=== PATIENT | female | born 1940 | race Caucasian/White ===

== ENCOUNTER 2016-10-11 11:15 | Inpatient (IN) | payer OTHER ==
[~2016-10-11] VITALS: Ht 152.4 cm; Wt 77.7 kg
[~2016-10-11 11:15] MED LIST: ACETAMINOPHEN650 M6 PO; ADVIL,NUPRIN,M200 MG PO; AMLODIPINE BESYL5 MG PO; ATIVAN0.5 MG PO; BUTALB-APAP-CA1 EACH PO; CEFADROXIL500 MG PO; CEFTIN250 MG PO; CEFTRIAXONE2 G1 IM; CIPRO500 MG PO; COZAAR50 MG PO; Ceftin PO; Cipro PO; DECADRON1 MG PO; DEXAMETHASONE0.75 MG PO; DURICEF500 MG PO; ERGOCALCIF50000 UNIT PO; FIORICET,ESG1 TABLET PO; FLORASTOR250 MG PO; GEMFIBROZIL600 MG PO; HYDROCODON-ACE1 EACH; HYZAAR 100-11 TABLET PO; Hyzaar 100-12.5 PO; LOPID600 MG PO; LORAZEPAM0.5 MG PO; LOSARTAN POTAS100 MG PO; LOSARTAN-HCTZ1 EAC2 PO; MEDROL DOSEPAK4 MG PO; MIRAPEX0.25 MG PO; Mirapex PO; NORVASC5 MG PO; ONDANSETRON ODT4 MG PO; PRAMIPEXOLE D0.25 MG; PRAMIPEXOLE D0.25 MG PO; PRAVACHOL20 MG PO; PREDNISOLONE AC15 ML LEFT EYE; PRILOSEC OTC20 M1 PO; PRILOSEC OTC20 MG PO; ROCEPHIN1 GM/50 ML IV; SAMSCA15 MG PO; TRAMADOL HCL50 MG PO; URSODIOL300 MG PO; VITAMIN D1000 INTUN PO; VITAMIN D2000 UNI1 PO; Vicodin,Lortab 5/500 PO; ZANAFLEX4 MG PO
[2016-10-11 11:55] LABS: EOSINOPHIL (%) 2.8 % (0-5); EOSINOPHIL COUNT 0.2 K/uL (0-0.3); HEMATOCRIT 31.6 % (36.0-46.0); IMMATURE GRANULOCYTE (%) 1.5 % (0.0-0.7); IMMATURE GRANULOCYTE COUNT 0.1 K/uL; INSTRUMENT ABS NEUTROPHIL CT 4.1 K/uL; LYMPHOCYTE COUNT 1.3 K/uL (1.0-2.8); MCH 28.1 PG (29.0-34.0); MCHC 34.2 G/DL (30.0-36.0); MCV 82.1 FL (83-99); MEAN PLAT.VOLUME 9.3 uM^3 (9.5-12.4); MONOCYTE (%) 6.3 % (3-12); MONOCYTE COUNT 0.4 K/uL (0-0.8); NEUTROPHIL COUNT 4.1 K/uL (1.8-6.4); PLATELET COUNT 198 K/uL (156-360); RBC DIS.WIDTH-CV 14.2 % (11.8-14.6); RBC DIS.WIDTH-SD 41.4 % (39-53); RED BLOOD COUNT 3.85 M/uL (3.80-5.20); WHITE BLOOD COUNT 6.1 K/uL (4.1-10.2)
[2016-10-11 12:06] LABS: CHLORIDE 91 mEq/L (99-109); POTASSIUM 3.8 mEq/L (3.7-5.4)
[2016-10-11 12:09] LABS: GLUCOSE 95 mg/dL (70-99)
[2016-10-11 12:11] LABS: TOTAL BILIRUBIN 1.2 mg/dL (0.0-1.0)
[2016-10-11 12:12] LABS: ALKALINE PHOSPHATASE 68 IU/L (3-129); GFR ESTIMATE (CALCULATED) > 59 mL/min/
[2016-10-11 12:13] LABS: UREA NITROGEN (BUN) 11 mg/dL (9-23)
[2016-10-11 12:17] LABS: TROP-I INTERPRETATION NEGATIVE; TROPONIN-I < 0.01 ng/mL (0.0-0.30)
[2016-10-11 12:23] LABS: ANION GAP 1 MEQ/L (2-14); SODIUM 119 mEq/L (136-147)
[2016-10-11 13:24] LABS: ADD MIUA? YES; BILIRUBIN NEGATIVE; BLOOD NEGATIVE; COLOR YELLOW ((YELLOW)); GLUCOSE (STRIP) NEGATIVE; KETONES 5; LEUKOCYTES TRACE; NITRITE NEGATIVE; PROTEIN (STRIP) NEGATIVE; SPECIFIC GRAVITY 1.017 (1.000-1.030)
[2016-10-11 13:41] LABS: BACTERIA NONE SEEN /HPF; EPITHELIAL CELLS RARE /HPF; MUCUS TRACE /LPF; RED BLOOD CELLS 0-5 /HPF (0-5); UCUL ADDED? NO; WHITE BLOOD CELLS 0-5 /HPF (0-5)
[2016-10-11 16:10] LABS: CHLORIDE 93 mEq/L (99-109); SODIUM 122 mEq/L (136-147)
[2016-10-11 16:12] LABS: GLUCOSE 88 mg/dL (70-99)
[2016-10-11 16:14] LABS: ANION GAP 6 MEQ/L (2-14)
[2016-10-11 16:16] LABS: GFR ESTIMATE (CALCULATED) > 59 mL/min/
[2016-10-11 16:17] LABS: UREA NITROGEN (BUN) 10 mg/dL (9-23)
[2016-10-11 17:11] VITALS: BP 134/67
[2016-10-11 20:20] VITALS: BP 137/64
[2016-10-12] VITALS (7 sets, daily range): BP systolic 121–158; BP diastolic 60–72
[2016-10-12 07:08] LABS: HEMATOCRIT 30.5 % (36.0-46.0); MCH 29.2 PG (29.0-34.0); MCHC 33.4 G/DL (30.0-36.0); MEAN PLAT.VOLUME 9.5 uM^3 (9.5-12.4); PLATELET COUNT 175 K/uL (156-360); RBC DIS.WIDTH-CV 14.2 % (11.8-14.6); RBC DIS.WIDTH-SD 44.2 % (39-53); RED BLOOD COUNT 3.49 M/uL (3.80-5.20)
[2016-10-12 07:11] LABS: MCV 87.4 FL (83-99); WHITE BLOOD COUNT 4.2 K/uL (4.1-10.2)
[2016-10-12 07:30] LABS: ANION GAP 11 MEQ/L (2-14); CHLORIDE 92 MEQ/L (99-109); POTASSIUM 4.1 MEQ/L (3.7-5.4); SAMPLE HEMOLYSIS CHECK 0; SAMPLE ICTERIC CHECK 0; SAMPLE LIPEMIA CHECK 0; SODIUM 120 MEQ/L (136-147)
[2016-10-12 07:35] LABS: GFR ESTIMATE (CALCULATED) > 59 mL/min/; GLUCOSE 74 mg/dL (70-99); UREA NITROGEN (BUN) 8 mg/dL (9-23)
[2016-10-12] MEDS ORDERED: ONDANSETRON HCL4 MG PO (11:20)
[2016-10-12] MEDS ORDERED: CRESTOR10 MG PO (11:20)
[2016-10-12 13:14] LABS: CHLORIDE 95 mEq/L (99-109); SODIUM 123 mEq/L (136-147)
[2016-10-12 13:17] LABS: GLUCOSE 124 mg/dL (70-99)
[2016-10-12 13:19] LABS: GFR ESTIMATE (CALCULATED) > 59 mL/min/
[2016-10-12 13:20] LABS: UREA NITROGEN (BUN) 8 mg/dL (9-23)
[2016-10-12 16:51] LABS: SAMPLE HEMOLYSIS CHECK 0; SAMPLE ICTERIC CHECK 0; SAMPLE LIPEMIA CHECK 0
[2016-10-12 18:01] LABS: CHLORIDE 104 mEq/L (99-109); POTASSIUM 3.9 mEq/L (3.7-5.4)
[2016-10-12 18:03] LABS: GLUCOSE 131 mg/dL (70-99)
[2016-10-12 18:04] LABS: ANION GAP 8 MEQ/L (2-14)
[2016-10-12 18:07] LABS: GFR ESTIMATE (CALCULATED) > 59 mL/min/; UREA NITROGEN (BUN) 6 mg/dL (9-23)
[2016-10-12 18:08] LABS: SODIUM 133 mEq/L (136-147)
[2016-10-13] VITALS (7 sets, daily range): BP systolic 130–157; BP diastolic 60–77
[2016-10-13 01:14] LABS: CHLORIDE 106 mEq/L (99-109); POTASSIUM 3.6 mEq/L (3.7-5.4); SODIUM 135 mEq/L (136-147)
[2016-10-13 01:16] LABS: GLUCOSE 105 mg/dL (70-99)
[2016-10-13 01:17] LABS: ANION GAP 8 MEQ/L (2-14)
[2016-10-13 01:20] LABS: GFR ESTIMATE (CALCULATED) > 59 mL/min/
[2016-10-13 01:21] LABS: UREA NITROGEN (BUN) 6 mg/dL (9-23)
[2016-10-13 07:57] LABS: ANION GAP 10 MEQ/L (2-14); CHLORIDE 105 MEQ/L (99-109); GFR ESTIMATE (CALCULATED) > 59 mL/min/; GLUCOSE 121 mg/dL (70-99); POTASSIUM 3.7 MEQ/L (3.7-5.4); SAMPLE HEMOLYSIS CHECK 0; SAMPLE ICTERIC CHECK 0; SAMPLE LIPEMIA CHECK 0; SODIUM 136 MEQ/L (136-147); UREA NITROGEN (BUN) 6 mg/dL (9-23)
[2016-10-14 03:52] VITALS: BP 142/70
[2016-10-14 07:44] VITALS: BP 168/77
[2016-10-14] MEDS ORDERED: POLYETHYLENE GL17 GM PO (13:55)
[2016-10-14] MEDS ORDERED: AMLODIPINE BESYL5 MG PO (13:55)
[2016-10-14] MEDS ORDERED: HYDROCORTISONE20 MG PO (13:55)
[2016-10-14] MEDS ORDERED: HYDROCORTISONE5 MG PO (13:55)
[2016-10-14 14:00] VITALS: BP 139/65
== END 2016-10-14 16:40 | disposition home health service (06) | DRG 445 ==
LOC: EME 11:15 → 4EAST 13:47 → EDOF 13:47 → 4EAST 16:49 → 5EAST 10-13 21:05
PROVIDERS: Emergency Medicine; Hospitalist; Student in an Organized Health Care Education/Training Program
DX: K80.50 Calculus of bile duct without cholangitis or cholecystitis without obstruction (principal); E87.1 Hypo-osmolality and hyponatremia; E86.0 Dehydration; I10 Essential (primary) hypertension; E78.5 Hyperlipidemia, unspecified; G25.81 Restless legs syndrome; K21.9 Gastro-esophageal reflux disease without esophagitis; F41.9 Anxiety disorder, unspecified; Z68.33 Body mass index [BMI] 33.0-33.9, adult; Z88.2 Allergy status to sulfonamides
CPT/HCPCS: 71010; 80048; 80048 91; 80053; 81003; 84145 90; 84300; 84443; 84484; 85025; 85027; 93005; 99281; 99285; J1650; J1720; J2405; J7030

== ENCOUNTER 2016-12-25 16:39 | Inpatient (IN) | payer OTHER ==
[~2016-12-25] VITALS: Ht 154.9 cm; Wt 71.6 kg
[~2016-12-25 16:39] MED LIST changes: +CRESTOR10 MG PO; +HYDROCORTISONE20 MG PO; +HYDROCORTISONE5 MG PO; +ONDANSETRON HCL4 MG PO; +POLYETHYLENE GL17 GM PO
[2016-12-25 19:10] LABS: HEMATOCRIT 38.4 % (36.0-46.0); MCH 27.8 PG (29.0-34.0); MCHC 32.6 G/DL (30.0-36.0); MCV 85.5 FL (83-99); MEAN PLAT.VOLUME 8.7 uM^3 (9.5-12.4); PLATELET COUNT 293 K/uL (156-360); RBC DIS.WIDTH-CV 15.1 % (11.8-14.6); RBC DIS.WIDTH-SD 46.3 % (39-53); RED BLOOD COUNT 4.49 M/uL (3.80-5.20); WHITE BLOOD COUNT 7.6 K/uL (4.1-10.2)
[2016-12-25 19:16] LABS: INTER. NORMALIZED RATIO 1.2; PROTHROMBIN TIME 12.7 SEC (10.2-12.9)
[2016-12-25 19:19] LABS: CHLORIDE 101 mEq/L (99-109); POTASSIUM 3.8 mEq/L (3.7-5.4); SODIUM 141 mEq/L (136-147)
[2016-12-25 19:21] LABS: GLUCOSE 114 mg/dL (70-99)
[2016-12-25 19:22] LABS: ANION GAP 11 MEQ/L (2-14)
[2016-12-25 19:25] LABS: GFR ESTIMATE (CALCULATED) > 59 mL/min/
[2016-12-25 19:26] LABS: UREA NITROGEN (BUN) 13 mg/dL (9-23)
[2016-12-25 20:48] LABS: PTT 43.1 SEC (25-37)
[2016-12-25] MEDS ORDERED: CORTEF5 M1 PO ×2 (20:58→20:59)
[2016-12-25] MEDS ORDERED: ERGOCALCIF50000 UNIT PO (21:01)
[2016-12-25] MEDS ORDERED: COZAAR100 MG PO (21:04)
[2016-12-25] MEDS ORDERED: ATIVAN0.5 MG PO (21:04)
[2016-12-25 23:06] LABS: HEMATOCRIT 37.6 % (36.0-46.0); MCH 27.3 PG (29.0-34.0); MCHC 32.2 G/DL (30.0-36.0); MCV 84.9 FL (83-99); MEAN PLAT.VOLUME 8.8 uM^3 (9.5-12.4); PLATELET COUNT 311 K/uL (156-360); RBC DIS.WIDTH-CV 15.1 % (11.8-14.6); RBC DIS.WIDTH-SD 46.3 % (39-53); RED BLOOD COUNT 4.43 M/uL (3.80-5.20); WHITE BLOOD COUNT 7.9 K/uL (4.1-10.2)
[2016-12-25 23:12] LABS: INTER. NORMALIZED RATIO 1.3; PROTHROMBIN TIME 13.9 SEC (10.2-12.9)
[2016-12-26 00:18] VITALS: BP 136/86
[2016-12-26 03:59] VITALS: BP 128/65
[2016-12-26 04:02] LABS: INTER. NORMALIZED RATIO 1.2; PROTHROMBIN TIME 13.7 SEC (10.2-12.9)
[2016-12-26 04:21] LABS: PTT 217.8 SEC (25-37)
[2016-12-26 04:57] LABS: CHLORIDE 101 mEq/L (99-109); POTASSIUM 3.8 mEq/L (3.7-5.4); SODIUM 138 mEq/L (136-147)
[2016-12-26 05:00] LABS: ANION GAP 9 MEQ/L (2-14)
[2016-12-26 05:01] LABS: TOTAL BILIRUBIN 0.5 mg/dL (0.0-1.0)
[2016-12-26 05:03] LABS: GFR ESTIMATE (CALCULATED) > 59 mL/min/
[2016-12-26 05:09] LABS: GLUCOSE 89 mg/dL (70-99)
[2016-12-26 05:12] LABS: ALKALINE PHOSPHATASE 97 IU/L (3-129)
[2016-12-26 05:14] LABS: UREA NITROGEN (BUN) 13 mg/dL (9-23)
[2016-12-26 07:44] VITALS: BP 142/66
[2016-12-26 10:54] LABS: INTER. NORMALIZED RATIO 1.2; PROTHROMBIN TIME 13.3 SEC (10.2-12.9)
[2016-12-26 11:05] VITALS: BP 126/67
[2016-12-26 11:13] LABS: PTT 71.4 SEC (25-37)
[2016-12-26 16:24] VITALS: BP 111/62
[2016-12-26 20:15] VITALS: BP 132/71
[2016-12-27 00:43] VITALS: BP 124/64
[2016-12-27 07:45] VITALS: BP 140/75
[2016-12-27 08:07] LABS: INTER. NORMALIZED RATIO 2.1
[2016-12-27 08:23] LABS: PROTHROMBIN TIME 23.4 SEC (10.2-12.9)
[2016-12-27] MEDS ORDERED: ELIQUIS5 MG PO (10:24)
[2016-12-29 23:29] LABS: LUPA PHOSPHOLIPID NEUTRALIZ Negative (Negative)
== END 2016-12-27 14:30 | disposition home or self-care (01) | DRG 300 ==
LOC: EME 16:39 → RAD 16:39 → EDOF 21:47 → 2EAST 21:47 → ENRESERV 21:50 → 2EAST 23:13
PROVIDERS: Emergency Medicine; Internal Medicine
DX: I82.403 Acute embolism and thrombosis of unspecified deep veins of lower extremity, bilateral (principal); E22.2 Syndrome of inappropriate secretion of antidiuretic hormone; E78.5 Hyperlipidemia, unspecified; I10 Essential (primary) hypertension; K83.0 Cholangitis; M41.9 Scoliosis, unspecified; K21.9 Gastro-esophageal reflux disease without esophagitis; F41.9 Anxiety disorder, unspecified; Z90.49 Acquired absence of other specified parts of digestive tract; E78.00 Pure hypercholesterolemia, unspecified; M48.00 Spinal stenosis, site unspecified; G25.81 Restless legs syndrome; Z68.29 Body mass index [BMI] 29.0-29.9, adult; Z79.2 Long term (current) use of antibiotics; Z80.0 Family history of malignant neoplasm of digestive organs
CPT/HCPCS: 72110; 73502; 80048; 80053; 81240 90; 81241 90; 83090 90; 85027; 85240 90; 85300 90; 85303 90; 85305 90; 85306 90; 85610; 85613 90; 85670 90; 85730; 85730 90; 85730 GA; 86146 90; 86147 90; 93970; 99281; 99285; J2270

== ENCOUNTER 2017-06-24 00:25 | Emergency (ER) | payer OTHER ==
[~2017-06-24] VITALS: Ht 152.4 cm; Wt 81.5 kg
[~2017-06-24 00:25] MED LIST changes: +CORTEF5 M1 PO; +COZAAR100 MG PO; +ELIQUIS5 MG PO
[2017-06-24 02:30] LABS: HEMATOCRIT 29.6 % (36.0-46.0); HEMOGLOBIN 9.4 G/DL (11.9-15.5); MCH 24.2 PG (29.0-34.0); MCHC 31.8 G/DL (30.0-36.0); MCV 76.3 FL (83-99); PLATELET COUNT 259 K/uL (156-360); RBC DIS.WIDTH-CV 14.4 % (11.8-14.6); RBC DIS.WIDTH-SD 39.3 % (39-53); RED BLOOD COUNT 3.88 M/uL (3.80-5.20); WHITE BLOOD COUNT 8.9 K/uL (4.1-10.2)
[2017-06-24 02:38] LABS: PTT 40.6 SEC (25-37)
[2017-06-24 02:40] LABS: ALBUMIN 3.8 g/dL (3.2-4.8); CHLORIDE 102 mEq/L (99-109); SODIUM 140 mEq/L (136-147)
[2017-06-24 02:43] LABS: GLUCOSE 87 mg/dL (70-99); TOTAL PROTEIN 6.5 g/dL (6.4-8.3)
[2017-06-24 02:44] LABS: TOTAL BILIRUBIN 0.6 mg/dL (0.0-1.0)
[2017-06-24 02:46] LABS: ALKALINE PHOSPHATASE 95 IU/L (3-129); CREATININE 0.7 mg/dL (0.6-1.3); GFR ESTIMATE (CALCULATED) > 59 mL/min/
[2017-06-24 02:47] LABS: UREA NITROGEN (BUN) 8 mg/dL (9-23)
[2017-06-24 02:48] LABS: AST (GOT) 17 IU/L (2-34)
[2017-06-24 02:49] LABS: ALT (GPT) 7 IU/L (3-49)
[2017-06-24] MEDS ORDERED: FLEXERIL10 MG PO (04:09)
[2017-06-24 04:23] VITALS: BP 136/71
== END 2017-06-24 04:24 | disposition home or self-care (01) ==
LOC: EME → EDBD 00:25 → EME 00:25
PROVIDERS: Emergency Medicine Emergency Medical Services
DX: I82.441 Acute embolism and thrombosis of right tibial vein (principal); M54.5 Low back pain; I10 Essential (primary) hypertension; E78.5 Hyperlipidemia, unspecified; Z86.718 Personal history of other venous thrombosis and embolism; Z79.01 Long term (current) use of anticoagulants
CPT/HCPCS: 80053; 85027; 85610; 85730; 93005; 93971; 99281; 99285; J7040

== ENCOUNTER 2017-07-19 12:07 | Observation (INO) | payer OTHER ==
[~2017-07-19] VITALS: Ht 152.4 cm; Wt 79.6 kg
[~2017-07-19 12:07] MED LIST changes: +FLEXERIL10 MG PO
[2017-07-19 14:33] LABS: BASOPHIL (%) 0.4 % (0-1); CARBON DIOXIDE (BICARBONATE) 30.6 MEQ/L (20-31); EOSINOPHIL (%) 1.4 % (0-5); EOSINOPHIL COUNT 0.1 K/uL (0-0.3); HEMATOCRIT 31.5 % (36.0-46.0); HEMOGLOBIN 9.7 G/DL (11.9-15.5); IMMATURE GRANULOCYTE (%) 0.5 % (0.0-0.7); LYMPHOCYTE (%) 22.8 % (15-42); LYMPHOCYTE COUNT 2.1 K/uL (1.0-2.8); MCH 23.4 PG (29.0-34.0); MCHC 30.8 G/DL (30.0-36.0); MCV 76.1 FL (83-99); MONOCYTE (%) 7.7 % (3-12); MONOCYTE COUNT 0.7 K/uL (0-0.8); NEUTROPHIL (%) 67.2 % (45-76); NEUTROPHIL COUNT 6.2 K/uL (1.8-6.4); PLATELET COUNT 294 K/uL (156-360); RBC DIS.WIDTH-CV 15.7 % (11.8-14.6); RBC DIS.WIDTH-SD 43.5 % (39-53); RED BLOOD COUNT 4.14 M/uL (3.80-5.20); WHITE BLOOD COUNT 9.3 K/uL (4.1-10.2)
[2017-07-19 14:42] LABS: ALBUMIN 3.8 g/dL (3.2-4.8); CHLORIDE 102 mEq/L (99-109); POTASSIUM 3.1 mEq/L (3.7-5.4); SODIUM 138 mEq/L (136-147)
[2017-07-19 14:45] LABS: GLUCOSE 88 mg/dL (70-99); TOTAL PROTEIN 6.7 g/dL (6.4-8.3)
[2017-07-19 14:47] LABS: TOTAL BILIRUBIN 0.9 mg/dL (0.0-1.0)
[2017-07-19 14:48] LABS: ALKALINE PHOSPHATASE 89 IU/L (3-129); CREATININE 0.7 mg/dL (0.6-1.3); GFR ESTIMATE (CALCULATED) > 59 mL/min/
[2017-07-19 14:49] LABS: UREA NITROGEN (BUN) 11 mg/dL (9-23)
[2017-07-19 14:50] LABS: AST (GOT) 16 IU/L (2-34)
[2017-07-19 14:51] LABS: ALT (GPT) 8 IU/L (3-49)
[2017-07-19 14:52] LABS: LIPASE 9 U/L (1.0-51.0)
[2017-07-19 14:53] LABS: TROP-I INTERPRETATION NEGATIVE; TROPONIN-I < 0.01 ng/mL (0.0-0.30)
[2017-07-19 15:01] LABS: APPEARANCE CLEAR ((CLEAR)); BILIRUBIN NEGATIVE; BLOOD NEGATIVE; COLOR YELLOW ((YELLOW)); GLUCOSE (STRIP) NEGATIVE; KETONES NEGATIVE; LEUKOCYTES NEGATIVE; NITRITE NEGATIVE; PROTEIN (STRIP) NEGATIVE; UCUL ADDED? NO; UROBILINOGEN 0.2 MG/DL (0.2-1.0)
[2017-07-19 16:05] LABS: INTER. NORMALIZED RATIO 7.2
[2017-07-19] MEDS ORDERED: CORTEF5 M1 PO ×2 (16:49→16:50)
[2017-07-19] MEDS ORDERED: ATIVAN0.5 MG PO (16:53)
[2017-07-19] MEDS ORDERED: FLEXERIL10 MG PO (16:56)
[2017-07-19] MEDS ORDERED: COUMADIN5 MG PO (16:58)
[2017-07-19] MEDS ORDERED: AMLODIPINE BESYL5 MG PO (17:00)
[2017-07-19] MEDS ORDERED: OMEPRAZOLE20 M2 PO (17:01)
[2017-07-19 19:19] LABS: HEMATOCRIT 29.6 % (36.0-46.0); HEMOGLOBIN 9.1 G/DL (11.9-15.5); MCV 76.7 FL (83-99)
[2017-07-19 19:59] VITALS: BP 139/63
[2017-07-19 23:47] VITALS: BP 129/59
[2017-07-20 03:35] VITALS: BP 139/85
[2017-07-20 05:38] LABS: HEMOGLOBIN 9.3 G/DL (11.9-15.5); MCH 23.4 PG (29.0-34.0); MCV 77.9 FL (83-99); PLATELET COUNT 303 K/uL (156-360); RBC DIS.WIDTH-SD 45.1 % (39-53); RED BLOOD COUNT 3.98 M/uL (3.80-5.20); WHITE BLOOD COUNT 9.4 K/uL (4.1-10.2)
[2017-07-20 06:05] LABS: CREATININE 0.6 MG/DL (0.6-1.3); GFR ESTIMATE (CALCULATED) > 59 mL/min/; GLUCOSE 126 mg/dL (70-99); UREA NITROGEN (BUN) 13 mg/dL (9-23)
[2017-07-20 06:29] LABS: INTER. NORMALIZED RATIO 5.6; PTT 65.7 SEC (25-37)
[2017-07-20 07:32] LABS: CHLORIDE 103 MEQ/L (99-109); SODIUM 136 MEQ/L (136-147)
[2017-07-20 09:09] VITALS: BP 164/77
[2017-07-20 11:34] VITALS: BP 144/66
[2017-07-20 14:30] LABS: HEMATOCRIT 30.2 % (36.0-46.0); HEMOGLOBIN 9.1 G/DL (11.9-15.5); MCV 77.6 FL (83-99)
[2017-07-20 14:53] LABS: CHLORIDE 101 MEQ/L (99-109); CREATININE 0.6 MG/DL (0.6-1.3); GFR ESTIMATE (CALCULATED) > 59 mL/min/; GLUCOSE 111 mg/dL (70-99); POTASSIUM 4.1 MEQ/L (3.7-5.4); SODIUM 135 MEQ/L (136-147); UREA NITROGEN (BUN) 16 mg/dL (9-23)
[2017-07-20 16:18] VITALS: BP 159/75
[2017-07-20 20:15] VITALS: BP 143/63
[2017-07-21 00:42] VITALS: BP 166/74
[2017-07-21 04:23] VITALS: BP 173/79
[2017-07-21 08:34] VITALS: BP 156/70
[2017-07-21 09:06] LABS: INTER. NORMALIZED RATIO 1.7
[2017-07-21 12:08] VITALS: BP 171/79
[2017-07-21 15:38] LABS: HEMOGLOBIN 9.1 G/DL (11.9-15.5); MCH 23.2 PG (29.0-34.0); MCHC 30.3 G/DL (30.0-36.0); MCV 76.5 FL (83-99); PLATELET COUNT 326 K/uL (156-360); RBC DIS.WIDTH-CV 16.3 % (11.8-14.6); RBC DIS.WIDTH-SD 44.7 % (39-53); RED BLOOD COUNT 3.92 M/uL (3.80-5.20)
[2017-07-21 15:51] LABS: CHLORIDE 99 MEQ/L (99-109); MAGNESIUM 1.8 mg/dl (1.3-2.7); POTASSIUM 3.7 MEQ/L (3.7-5.4); SODIUM 131 MEQ/L (136-147)
[2017-07-21 15:57] LABS: CREATININE 0.5 MG/DL (0.6-1.3); GFR ESTIMATE (CALCULATED) > 59 mL/min/; GLUCOSE 97 mg/dL (70-99); UREA NITROGEN (BUN) 11 mg/dL (9-23)
[2017-07-21 16:00] LABS: TROP-I INTERPRETATION NEGATIVE; TROPONIN-I 0.01 ng/mL (0.0-0.30)
[2017-07-21 19:40] VITALS: BP 132/66
[2017-07-21 21:43] LABS: TROP-I INTERPRETATION NEGATIVE; TROPONIN-I < 0.01 ng/mL (0.0-0.30)
[2017-07-22 00:38] VITALS: BP 105/51
[2017-07-22 03:25] LABS: TROP-I INTERPRETATION NEGATIVE; TROPONIN-I < 0.01 ng/mL (0.0-0.30)
[2017-07-22 05:12] VITALS: BP 119/56
[2017-07-22 08:55] VITALS: BP 153/69
[2017-07-22 09:21] LABS: HEMATOCRIT 27.8 % (36.0-46.0); HEMOGLOBIN 8.4 G/DL (11.9-15.5); MCH 23.4 PG (29.0-34.0); MCHC 30.2 G/DL (30.0-36.0); MCV 77.4 FL (83-99); PLATELET COUNT 353 K/uL (156-360); RBC DIS.WIDTH-CV 16.3 % (11.8-14.6); RBC DIS.WIDTH-SD 45.1 % (39-53); RED BLOOD COUNT 3.59 M/uL (3.80-5.20); WHITE BLOOD COUNT 9.6 K/uL (4.1-10.2)
[2017-07-22 09:52] LABS: CHLORIDE 101 MEQ/L (99-109); CREATININE 0.6 MG/DL (0.6-1.3); GFR ESTIMATE (CALCULATED) > 59 mL/min/; GLUCOSE 103 mg/dL (70-99); POTASSIUM 4.3 MEQ/L (3.7-5.4); SODIUM 135 MEQ/L (136-147); UREA NITROGEN (BUN) 11 mg/dL (9-23)
[2017-07-22 11:19] VITALS: BP 161/68
[2017-07-22 14:34] LABS: HEMATOCRIT 26.8 % (36.0-46.0); HEMOGLOBIN 8.2 G/DL (11.9-15.5); MCV 76.1 FL (83-99)
[2017-07-22 16:27] VITALS: BP 121/72
[2017-07-22] MEDS ORDERED: TRAMADOL HCL50 MG PO (17:10)
[2017-07-22] MEDS ORDERED: CEFDINIR300 MG PO (17:10)
[2017-07-22] MEDS ORDERED: ATIVAN0.5 MG PO (17:10)
[2017-07-22 19:30] VITALS: BP 120/77
== END 2017-07-22 21:52 ==
LOC: EME 12:07 → 5WEST 18:33 → EDOF 18:33 → ENRESERV 18:36 → 5WEST 19:25
PROVIDERS: Emergency Medicine; Hospitalist; Nurse Practitioner Family
DX: G92 Toxic encephalopathy (principal); T45.515A Adverse effect of anticoagulants, initial encounter; E22.2 Syndrome of inappropriate secretion of antidiuretic hormone; E23.6 Other disorders of pituitary gland; R79.1 Abnormal coagulation profile; Z86.718 Personal history of other venous thrombosis and embolism; I10 Essential (primary) hypertension; M17.12 Unilateral primary osteoarthritis, left knee; M25.062 Hemarthrosis, left knee; E78.5 Hyperlipidemia, unspecified; G25.81 Restless legs syndrome; M79.605 Pain in left leg; K21.9 Gastro-esophageal reflux disease without esophagitis; R26.89 Other abnormalities of gait and mobility; Z90.49 Acquired absence of other specified parts of digestive tract; Z68.34 Body mass index [BMI] 34.0-34.9, adult; E27.40 Unspecified adrenocortical insufficiency; F41.9 Anxiety disorder, unspecified; I27.20 Pulmonary hypertension, unspecified; M85.80 Other specified disorders of bone density and structure, unspecified site; Z79.01 Long term (current) use of anticoagulants; Z83.3 Family history of diabetes mellitus; Z82.3 Family history of stroke; Z82.49 Family history of ischemic heart disease and other diseases of the circulatory system; Z80.0 Family history of malignant neoplasm of digestive organs; Z88.2 Allergy status to sulfonamides
CPT/HCPCS: 70450; 70551; 71045; 73564; 73700; 80048; 80048 91; 80053; 81003; 82803; 82948; 83605; 83690; 83735; 84484; 85014; 85018; 85025; 85027; 85610; 85730; 86850; 86900; 86901; 87040; 87502; 93005; 93306; 93971; 99281; 99285; G0378; G8978 GP CM; G8979 GP CM; G8987 GO CM; G8988 GO CL; J0696; J1720; J2270; J7030; J7042

== ENCOUNTER 2017-09-07 03:33 | Inpatient (IN) | payer OTHER ==
[~2017-09-07] VITALS: Ht 147.3 cm; Wt 78.1 kg
[~2017-09-07 03:33] MED LIST changes: +CEFDINIR300 MG PO; +COUMADIN5 MG PO; +OMEPRAZOLE20 M2 PO
[2017-09-07 04:41] LABS: HEMATOCRIT 31.3 % (36.0-46.0); HEMOGLOBIN 9.7 G/DL (11.9-15.5); MCH 23.7 PG (29.0-34.0); MCV 76.3 FL (83-99); PLATELET COUNT 370 K/uL (156-360); RBC DIS.WIDTH-CV 18.5 % (11.8-14.6); RBC DIS.WIDTH-SD 49.6 % (39-53); WHITE BLOOD COUNT 15.1 K/uL (4.1-10.2)
[2017-09-07 05:20] LABS: ALBUMIN 3.5 G/DL (3.2-4.8); ALKALINE PHOSPHATASE 74 IU/L (3-129); ALT (GPT) 7 IU/L (3-49); AST (GOT) 22 IU/L (2-34); CHLORIDE 96 MEQ/L (99-109); CREATININE 0.9 MG/DL (0.6-1.3); GFR ESTIMATE (CALCULATED) > 59 mL/min/; GLUCOSE 80 mg/dL (70-99); POTASSIUM 4.1 MEQ/L (3.7-5.4); SODIUM 131 MEQ/L (136-147); TOTAL PROTEIN 6.1 G/DL (6.4-8.3); UREA NITROGEN (BUN) 23 mg/dL (9-23)
[2017-09-07 05:53] LABS: APPEARANCE CLEAR ((CLEAR)); BILIRUBIN NEGATIVE; BLOOD NEGATIVE; COLOR YELLOW ((YELLOW)); GLUCOSE (STRIP) NEGATIVE; KETONES NEGATIVE; LEUKOCYTES NEGATIVE; NITRITE NEGATIVE; PROTEIN (STRIP) NEGATIVE; SPECIFIC GRAVITY 1.013 (1.000-1.030)
[2017-09-07 06:08] LABS: PTT 31.2 SEC (25-37)
[2017-09-07 06:11] LABS: INTER. NORMALIZED RATIO 1.6
[2017-09-07 07:10] LABS: ERTH.SED.RATE 48 MM/HR (0-30)
[2017-09-07] MEDS ORDERED: ATIVAN0.5 MG PO (07:16)
[2017-09-07] MEDS ORDERED: TYLENOL EXTRA500 MG PO (07:19)
[2017-09-07] MEDS ORDERED: DURICEF500 MG PO (07:19)
[2017-09-07 09:41] VITALS: BP 119/62
[2017-09-07 10:51] LABS: THYROTROPIN (TSH) 2.6 MIU/L (0.4-5.5)
[2017-09-07 11:00] LABS: URIC ACID 3.4 mg/dL (3.1-9.2)
[2017-09-07 11:44] VITALS: BP 109/58
[2017-09-08 00:25] VITALS: BP 98/51
[2017-09-08 06:01] LABS: CHLORIDE 100 MEQ/L (99-109); CREATININE 0.7 MG/DL (0.6-1.3); GFR ESTIMATE (CALCULATED) > 59 mL/min/; GLUCOSE 68 mg/dL (70-99); POTASSIUM 3.6 MEQ/L (3.7-5.4); SODIUM 132 MEQ/L (136-147); UREA NITROGEN (BUN) 18 mg/dL (9-23)
[2017-09-08 06:07] LABS: HEMATOCRIT 27.5 % (36.0-46.0); HEMOGLOBIN 8.1 G/DL (11.9-15.5); MCH 23.5 PG (29.0-34.0); MCHC 29.5 G/DL (30.0-36.0); MCV 79.7 FL (83-99); NRBC (%) 0.2 /100 WBC (0-0); PLATELET COUNT 278 K/uL (156-360); RBC DIS.WIDTH-CV 18.8 % (11.8-14.6); RBC DIS.WIDTH-SD 53.6 % (39-53); RED BLOOD COUNT 3.45 M/uL (3.80-5.20); WHITE BLOOD COUNT 8.9 K/uL (4.1-10.2)
[2017-09-08 07:36] VITALS: BP 135/60
[2017-09-08 10:03] LABS: INTER. NORMALIZED RATIO 1.8
[2017-09-08 11:52] LABS: GLUCOSE 70 mg/dL (70-99)
[2017-09-08 12:19] VITALS: BP 117/57
[2017-09-08 19:30] VITALS: BP 108/52
[2017-09-08 23:59] VITALS: BP 134/74
[2017-09-09 04:20] VITALS: BP 120/60
[2017-09-09 05:23] LABS: HEMATOCRIT 25.8 % (36.0-46.0); HEMOGLOBIN 7.7 G/DL (11.9-15.5); MCH 23.2 PG (29.0-34.0); MCHC 29.8 G/DL (30.0-36.0); MCV 77.7 FL (83-99); PLATELET COUNT 266 K/uL (156-360); RBC DIS.WIDTH-CV 18.4 % (11.8-14.6); RBC DIS.WIDTH-SD 50.8 % (39-53); RED BLOOD COUNT 3.32 M/uL (3.80-5.20); WHITE BLOOD COUNT 6.7 K/uL (4.1-10.2)
[2017-09-09 05:37] LABS: INTER. NORMALIZED RATIO 1.9
[2017-09-09 08:45] VITALS: BP 119/60
[2017-09-09 09:07] LABS: CHLORIDE 101 MEQ/L (99-109); CREATININE 0.6 MG/DL (0.6-1.3); GFR ESTIMATE (CALCULATED) > 59 mL/min/; POTASSIUM 4.1 MEQ/L (3.7-5.4); SODIUM 133 MEQ/L (136-147); TRANSFERRIN (TIBC) 178.3 mg/dL (215-380); UREA NITROGEN (BUN) 11 mg/dL (9-23)
[2017-09-09 09:19] LABS: GLUCOSE 118 mg/dL (70-99)
[2017-09-09 10:31] LABS: FERRITIN 80 NG/ML (10-291); IRON < 10 MCG/DL (35-150); TRANSFERRIN SATUR. 6 % (20-55)
[2017-09-09 11:15] VITALS: BP 129/66
[2017-09-09 15:11] VITALS: BP 107/68
[2017-09-09 19:49] VITALS: BP 131/69
[2017-09-10] VITALS: BP 125/65
[2017-09-10 04:11] VITALS: BP 114/64
[2017-09-10 05:09] LABS: HEMATOCRIT 26.1 % (36.0-46.0); HEMOGLOBIN 7.8 G/DL (11.9-15.5); MCH 23.1 PG (29.0-34.0); MCHC 29.9 G/DL (30.0-36.0); MCV 77.4 FL (83-99); PLATELET COUNT 303 K/uL (156-360); RBC DIS.WIDTH-CV 18.3 % (11.8-14.6); RBC DIS.WIDTH-SD 50.7 % (39-53); RED BLOOD COUNT 3.37 M/uL (3.80-5.20)
[2017-09-10 05:14] LABS: INTER. NORMALIZED RATIO 2.2
[2017-09-10 05:38] LABS: ALBUMIN 2.9 G/DL (3.2-4.8); CHLORIDE 102 MEQ/L (99-109); CREATININE 0.5 MG/DL (0.6-1.3); GFR ESTIMATE (CALCULATED) > 59 mL/min/; GLUCOSE 109 mg/dL (70-99); PHOSPHORUS 2.5 mg/dL (2.5-4.9); POTASSIUM 3.8 MEQ/L (3.7-5.4); SODIUM 135 MEQ/L (136-147); UREA NITROGEN (BUN) 11 mg/dL (9-23)
[2017-09-10 07:47] VITALS: BP 114/58
[2017-09-10 11:09] VITALS: BP 119/67
[2017-09-10 19:03] VITALS: BP 112/76
[2017-09-11] VITALS (14 sets, daily range): BP systolic 113–151; BP diastolic 58–78
[2017-09-11 05:33] LABS: BASOPHIL (%) 0.5 % (0-1); EOSINOPHIL (%) 1.8 % (0-5); EOSINOPHIL COUNT 0.1 K/uL (0-0.3); HEMATOCRIT 23.6 % (36.0-46.0); HEMOGLOBIN 7.1 G/DL (11.9-15.5); IMMATURE GRANULOCYTE (%) 0.7 % (0.0-0.7); LYMPHOCYTE (%) 22.4 % (15-42); MCH 23.7 PG (29.0-34.0); MCHC 30.1 G/DL (30.0-36.0); MCV 78.7 FL (83-99); MONOCYTE (%) 7.1 % (3-12); MONOCYTE COUNT 0.3 K/uL (0-0.8); NEUTROPHIL (%) 67.5 % (45-76); PLATELET COUNT 286 K/uL (156-360); RBC DIS.WIDTH-CV 18.6 % (11.8-14.6); RBC DIS.WIDTH-SD 51.8 % (39-53); WHITE BLOOD COUNT 4.4 K/uL (4.1-10.2)
[2017-09-11 05:38] LABS: INTER. NORMALIZED RATIO 2.2
[2017-09-11 05:56] LABS: CHLORIDE 103 MEQ/L (99-109); CREATININE 0.6 MG/DL (0.6-1.3); GFR ESTIMATE (CALCULATED) > 59 mL/min/; GLUCOSE 93 mg/dL (70-99); POTASSIUM 3.5 MEQ/L (3.7-5.4); SODIUM 137 MEQ/L (136-147); UREA NITROGEN (BUN) 10 mg/dL (9-23)
[2017-09-12 00:12] VITALS: BP 119/67
[2017-09-12 03:30] VITALS: BP 139/77
[2017-09-12 05:54] LABS: MCH 24.5 PG (29.0-34.0); MCV 79.1 FL (83-99); PLATELET COUNT 285 K/uL (156-360); RBC DIS.WIDTH-CV 17.6 % (11.8-14.6); WHITE BLOOD COUNT 5.1 K/uL (4.1-10.2)
[2017-09-12 05:55] LABS: INTER. NORMALIZED RATIO 2.1
[2017-09-12 06:08] LABS: HEMOGLOBIN 9.6 G/DL (11.9-15.5); RED BLOOD COUNT 3.92 M/uL (3.80-5.20)
[2017-09-12 06:11] LABS: CHLORIDE 102 MEQ/L (99-109); CREATININE 0.5 MG/DL (0.6-1.3); GFR ESTIMATE (CALCULATED) > 59 mL/min/; GLUCOSE 92 mg/dL (70-99); POTASSIUM 3.6 MEQ/L (3.7-5.4); SODIUM 138 MEQ/L (136-147); UREA NITROGEN (BUN) 9 mg/dL (9-23)
[2017-09-12 07:10] VITALS: BP 154/78
[2017-09-12 08:37] LABS: MAGNESIUM 1.9 mg/dl (1.3-2.7)
[2017-09-12] MEDS ORDERED: FERROUS SULFAT325 MG PO (10:05)
[2017-09-12] MEDS ORDERED: OMEPRAZOLE20 M2 PO (11:53)
== END 2017-09-12 12:33 | disposition home health service (06) | DRG 552 ==
LOC: EME → EDBD 03:33 → 4SOUTH 08:03 → EDOF 08:03 → ENRESERV 08:04 → 4SOUTH 09:23
PROVIDERS: Emergency Medicine; Hospitalist; Internal Medicine; Internal Medicine Gastroenterology; Internal Medicine Nephrology; Nurse Practitioner Family
PROC: 0DB68ZX Excision of Stomach, Via Natural or Artificial Opening Endoscopic, Diagnostic (ICD-10-PCS; 2017-09-10)
PROC: 30233N1 Transfusion of Nonautologous Red Blood Cells into Peripheral Vein, Percutaneous Approach (ICD-10-PCS; principal; 2017-09-11)
DX: M48.02 Spinal stenosis, cervical region (principal); K22.10 Ulcer of esophagus without bleeding; E87.1 Hypo-osmolality and hyponatremia; E86.0 Dehydration; D50.9 Iron deficiency anemia, unspecified; G89.29 Other chronic pain; E11.649 Type 2 diabetes mellitus with hypoglycemia without coma; K29.70 Gastritis, unspecified, without bleeding; E78.5 Hyperlipidemia, unspecified; I10 Essential (primary) hypertension; I25.10 Atherosclerotic heart disease of native coronary artery without angina pectoris; K21.9 Gastro-esophageal reflux disease without esophagitis; F03.90 Unspecified dementia, unspecified severity, without behavioral disturbance, psychotic disturbance, mood disturbance, and anxiety; F41.9 Anxiety disorder, unspecified; E27.40 Unspecified adrenocortical insufficiency; K44.9 Diaphragmatic hernia without obstruction or gangrene; M17.0 Bilateral primary osteoarthritis of knee; M25.78 Osteophyte, vertebrae; M50.31 Other cervical disc degeneration, high cervical region; M47.812 Spondylosis without myelopathy or radiculopathy, cervical region; D72.829 Elevated white blood cell count, unspecified; R50.9 Fever, unspecified; R79.1 Abnormal coagulation profile; T45.515A Adverse effect of anticoagulants, initial encounter; E66.9 Obesity, unspecified; Z68.35 Body mass index [BMI] 35.0-35.9, adult; Z86.718 Personal history of other venous thrombosis and embolism
CPT/HCPCS: 70450; 71046; 72040; 72125; 72141; 73564; 80048; 80053; 80069; 81003; 82272; 82306; 82728; 82746; 82947 91; 82948; 83540; 83605; 83735; 83935; 84300; 84443; 84466; 84550; 85025; 85027; 85610; 85651; 85730; 86850; 86900; 86901; 86920; 87040; 87086; 88305; 88342 TC; 93970; 99281; 99285; G0378; J1940; J2405; J3010; J7030; J7042; P9016

== ENCOUNTER 2017-12-12 20:12 | Emergency (ER) | payer OTHER ==
[~2017-12-12] VITALS: Ht 152.4 cm; Wt 71.7 kg
[~2017-12-12 20:12] MED LIST changes: +FERROUS SULFAT325 MG PO; +TYLENOL EXTRA500 MG PO
[2017-12-12 21:07] LABS: BASOPHIL (%) 0.4 % (0-1); EOSINOPHIL (%) 0.5 % (0-5); EOSINOPHIL COUNT 0.1 K/uL (0-0.3); HEMATOCRIT 34.6 % (36.0-46.0); HEMOGLOBIN 11.4 G/DL (11.9-15.5); IMMATURE GRANULOCYTE (%) 0.6 % (0.0-0.7); LYMPHOCYTE (%) 22.7 % (15-42); LYMPHOCYTE COUNT 2.1 K/uL (1.0-2.8); MCH 27.8 PG (29.0-34.0); MCHC 32.9 G/DL (30.0-36.0); MCV 84.4 FL (83-99); MONOCYTE (%) 7.2 % (3-12); MONOCYTE COUNT 0.7 K/uL (0-0.8); NEUTROPHIL (%) 68.6 % (45-76); NEUTROPHIL COUNT 6.4 K/uL (1.8-6.4); PLATELET COUNT 254 K/uL (156-360); RBC DIS.WIDTH-CV 15.9 % (11.8-14.6); RBC DIS.WIDTH-SD 48.4 % (39-53); WHITE BLOOD COUNT 9.3 K/uL (4.1-10.2)
[2017-12-12 21:21] LABS: CHLORIDE 102 MEQ/L (99-109); POTASSIUM 3.2 MEQ/L (3.7-5.4); SODIUM 137 MEQ/L (136-147)
[2017-12-12 21:27] LABS: CREATININE 0.8 MG/DL (0.6-1.3); GFR ESTIMATE (CALCULATED) > 59 mL/min/; GLUCOSE 93 mg/dL (70-99); UREA NITROGEN (BUN) 14 mg/dL (9-23)
[2017-12-12 21:28] LABS: TROP-I INTERPRETATION NEGATIVE; TROPONIN-I < 0.01 ng/mL (0.0-0.30)
[2017-12-12 23:12] VITALS: BP 160/74
== END 2017-12-12 23:14 | disposition home or self-care (01) ==
LOC: EME → EDBD 20:12 → EME 23:14
PROVIDERS: Emergency Medicine
DX: E86.0 Dehydration (principal); I10 Essential (primary) hypertension; E78.5 Hyperlipidemia, unspecified; K21.9 Gastro-esophageal reflux disease without esophagitis; G25.81 Restless legs syndrome; F41.9 Anxiety disorder, unspecified; Z86.718 Personal history of other venous thrombosis and embolism; Z86.19 Personal history of other infectious and parasitic diseases; Z90.49 Acquired absence of other specified parts of digestive tract; Z88.2 Allergy status to sulfonamides
CPT/HCPCS: 80048; 84484; 85025; 93005; 99281; 99285; J7040